=== PATIENT | male | born 1995 | race Two or more races ===

== ENCOUNTER 2017-01-01 15:54 | Emergency (ER) | payer MEDICAID ==
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
== END 2017-01-01 18:25 | disposition home or self-care (01) ==
LOC: ER 15:54
DX: S02.32XA Fracture of orbital floor, left side, initial encounter for closed fracture (principal); F17.200 Nicotine dependence, unspecified, uncomplicated; X58.XXXA Exposure to other specified factors, initial encounter; Y93.89 Activity, other specified; Y92.89 Other specified places as the place of occurrence of the external cause; Y99.8 Other external cause status
CPT/HCPCS: 70480-TC; Z7502

== ENCOUNTER 2019-01-04 08:59 | Emergency (ER) | payer MEDICAID ==
[2019-01-04 10:29] LABS: ALB/GLOB RATIO 1.5 (1.0-1.8); ALBUMIN 4.4 gm/dL (4.2-5.5); ALKALINE PHOSPHATASE 68 U/L (34-104); ANION GAP 11.2 (7.0-16.0); BILIRUBIN,TOTAL 0.6 mg/dL (0.3-1.0); BUN - UREA NITROGEN 12 mg/dL (7-25); CALCIUM SERUM 9.9 mg/dL (8.6-10.3); CHLORIDE 100 mEq/L (98-107); CREATININE - SERUM 0.8 mg/dL (0.7-1.3); GFR AFRICAN-AMERICAN > 60.0 ml/min (>90); GFR NON AFRICAN-AMERICAN > 60.0 ml/min; GLUCOSE 93 mg/dL (70-105); POTASSIUM SERUM 4.2 mEq/L (3.5-5.1); SGOT 23 U/L (13-39); SGPT/ALT 27 U/L (7-52); SODIUM SERUM 136 mEq/L (136-145); TOTAL PROTEIN,SERUM 7.3 gm/dL (6.0-8.3)
--- NOTE | 2019-01-04 11:54 | Diagnostic Imaging Report ---
Portable chest x-ray History: Pain Allowing for portable technique the heart size is normal. No focal pulmonary parenchymal processes. No hilar or mediastinal abnormalities. Impression: No acute abnormalities.
--- NOTE | 2019-01-04 11:56 | Diagnostic Imaging Report ---
Abdominal series (2 views) HISTORY: Pain There is a nonspecific gas pattern of nondilated bowel. No free intraperitoneal air. IMPRESSION: No acute radiographic abnormalities
[2019-01-04 11:57] LABS: % BASOPHILS 0.5 % (0.0-2.0); % EOSINOPHILS 1.6 % (0.0-5.0); % LYMPHOCYTES 23.1 % (20.0-50.0); % MONOCYTES 8.5 % (2.0-10.0); % NEUTROPHILS 66.3 % (40.0-80.0); MEAN CELL VOLUME 89.3 fl (80-99); MEAN CORPUSCULAR HEMOGLOBIN 29.7 pg (26.0-30.0); MEAN CORPUSCULAR HGB CONC 33.3 pg (28.0-36.0); NEUTROPHILE ABSOLUTE 4.9 Th/cmm (1.8-8.0); PLATELET COUNT 305 Th/cmm (150-400); RED BLOOD COUNT 5.37 Mil/cmm (4.30-5.70); RED CELL DISTRIBUTION WIDTH 13.8 % (11.5-20.0); WHITE BLOOD COUNT 7.3 Th/cmm (4.8-10.8)
[2019-01-04 11:58] LABS: EOSINOPHILE ABSOLUTE 0.1 Th/cmm (0.1-0.4); LYMPHOCYTE ABSOLUTE 1.7 Th/cmm (1.5-3.0); MONOCYTE ABSOLUTE 0.6 Th/cmm (0.3-1.0)
[2019-01-04 12:33] LABS: URINE SOURCE RANDOM
[2019-01-04 12:59] LABS: URINE BILIRUBIN NEGATIVE (NEGATIVE); URINE BLOOD NEGATIVE (NEGATIVE); URINE GLUCOSE (UA) NEGATIVE (NEGATIVE); URINE KETONE NEGATIVE (NEGATIVE); URINE LEUKOCYTE ESTERASE NEGATIVE (NEGATIVE); URINE NITRATE NEGATIVE (NEGATIVE); URINE PROTEIN NEGATIVE (NEGATIVE)
[2019-01-04 13:04] LABS: URINE CLARITY SLIGHTLY HAZY (CLEAR); URINE MICROSCOPIC INDICATED? NO
[2019-01-04 13:05] LABS: URINE COLOR YELLOW
--- NOTE | 2019-01-04 16:32 | ED Physician Chart ---
ED Chief Complaint/HPI - Patient Information Date Seen:: 01/04/19 Time Seen:: 09:30 Allergies:: Allergies Allergy/AdvReac Type Severity Reaction Status Date / Time No Known Allergies Allergy Verified 01/01/17 16:06 Vitals:: Vital Signs - 8 hr 01/04/19 01/04/19 09:19 11:30 Temp 98.1 F HR 89 84 RR 16 16 BP 126/60 124/62 O2 Sat % 94 98 Historian:: Patient (stomach pain vommitting reports blood) ED Review of Systems - Review of Systems General/Constitutional: No fever Skin: No skin lesions Head: No headache Eyes: No loss of vision ENT: No earache Neck: No neck pain Cardio Vascular: No chest pain Pulmonary: No SOB GI: Vomiting, No diarrhea G/U: No dysuria Musculoskeletal: No bone or joint pain Endocrine: No polyuria Psychiatric: No auditory hallucination Hematopoietic: No bruising Allergic/Immuno: No urticaria Neurological: No syncope ED Past Medical History - Past Medical History Obtainable: Yes Past Medical History: No significant medical hx (no ulcer or nsaid taken) Social History: No Alcohol, No Drug Use Surgical History: None Psychiatricy History: None Medication: None Family Medical History - Family Member Mother History Unknown: Yes Living Status: Still Living ED Physical Exam - Physical Examination General/Constitutional: Awake, Well-developed, well-nourished, Alert, No distress, GCS 15, Non-toxic appearing, Ambulatory Head: Atraumatic Eyes: Lids, conjuctiva normal Skin: Nl inspection ENMT: External ears, nose nl Neck: Nontender Respiratory: Nl effort/Exclusion, Clear to Auscultation, No Wheeze/Rhonchi/Rales Cardio Vascular: RRR, No murmur, gallop, rubs, NL S1 S2, Carotid/Femoral/Distal pulses equal bilaterally GI: No tenderness/rebounding/guarding, No organomegaly, No hernia, Normal BS's, Nondistended, No mass/bruits, No McBurney tenderness, Rectum exam nl : No CVA tenderness Extremities: No tenderness or effusion, Full ROM, normal strength in all extremities, No edema, Normal digits & nails Neuro/Psych: Alert/oriented, DTR's symmetric, Normal sensory exam, Normal motor strength Misc: Normal back ED Labs/Radiology/EKG Results - Lab Results Results: Laboratory Tests 01/04/19 01/04/19 01/04/19 09:55 09:55 12:07 WBC 7.3 RBC 5.37 Hgb 16.0 Hct 48.0 MCV 89.3 MCH 29.7 MCHC Differential 33.3 RDW 13.8 Plt Count 305 MPV 8.7 Neutrophils % 66.3 Lymphocytes % 23.1 Monocytes % 8.5 Eosinophils % 1.6 Basophils % 0.5 Sodium 136 Potassium 4.2 Chloride 100 Carbon Dioxide 29.0 Anion Gap 11.2 BUN 12 Creatinine 0.8 Est GFR ( Amer) > 60.0 Est GFR (Non-Af Amer) > 60.0 BUN/Creatinine Ratio 15.0 Glucose 93 Calcium 9.9 Total Bilirubin 0.6 Direct Bilirubin 0.10 AST 23 ALT 27 Alkaline Phosphatase 68 Total Protein 7.3 Albumin 4.4 Globulin 2.9 Albumin/Globulin Ratio 1.5 Urine Source RANDOM Urine Color YELLOW Urine Clarity SLIGHTLY HAZY Urine pH 7.0 Ur Specific [place] 1.020 Urine Protein NEGATIVE Urine Glucose (UA) NEGATIVE Urine Ketones NEGATIVE Urine Blood NEGATIVE Urine Nitrate NEGATIVE Urine Bilirubin NEGATIVE Urine Urobilinogen 1.0 Ur Leukocyte Esterase NEGATIVE ED Assessment - Assessment General Assessment: multiple pe reveal none surgical abd later request to eat and then request note for work signed out ama waiting for lab [facility] hospital equipment issue here instructed signs of surgical abdomen ED Septic Shock - . Is Septic Shock (SBP<90, OR Lactate>4 mmol\L) present?: No - <6hrs of presentation: Vital Signs: Vital Signs - 8 hr 01/04/19 01/04/19 09:19 11:30 Temp 98.1 F HR 89 84 RR 16 16 BP 126/60 124/62 O2 Sat % 94 98 ED Reassessment (Disposition) - Reassessment Reassessment Condition:: Improved (hungry no sign surgical abdomen) - Aftercare/Follow up Instructions Aftercare/Follow-Up Instructions:: Counseled pt regarding lab results/diagnosis & need follow up - Patient Disposition Discharge/Transfer:: Against Medical Advice Condition at Disposition:: Improved
== END 2019-01-04 12:57 | disposition left against medical advice (07) ==
LOC: ER 08:59
DX: R11.10 Vomiting, unspecified (principal)
CPT/HCPCS: 36415-UA; 71045-TC; 74019-TC; 80048-TC; 80076-TC; 81003-TC; 85025-TC